=== PATIENT | male | born 2000 ===

== ENCOUNTER 2023-07-13 06:57 | Emergency (ER) | payer OTHER, SELFPAY ==
--- NOTE | ~2023-07-13 | XR_ITS ---
EXAMINATION: XR CHEST CLINICAL INFORMATION: Chest pain. Rule out pneumonia COMPARISON: None available. TECHNIQUE: 2 views of the chest were obtained. FINDINGS: No significant abnormality is noted involving the heart, lungs, mediastinum, bony thorax or soft tissues. XR/XR chest 2V IMPRESSION: Unremarkable chest examination.
[2023-07-13 07:00] VITALS: BP 133/68; PULSE 86; RESP 19; TEMP 36.9; O2SAT 99; BMI 23.5
--- NOTE | 2023-07-13 07:54 | ED_ITS ---
HPI - Fever General Chief Complaint: Fever Stated Complaint: Fever Diarrhea Time Seen by Provider: 07/13/23 07:15 Source: patient and family ( Mother, Velvet) Mode of arrival: ambulatory Limitations: no limitations History of Present Illness HPI Narrative: 22 older male who presents emergency department for evaluation of 3 days of fever as high as 104.9, sore throat, chills, fatigue, joint pain. The patient was at a surfing cap in [facility] for approximately 15 days. He did go to a [facility] [place] area to see a water fall in [facility]. The patient does not recall any insect bites. He states that he has had fever and chills which have been intermittent over the past 3 days. He denied rhinorrhea. Complains of a mild to moderate sore throat. He denied cough, chest pain, shortness of breath, dyspnea on exertion he denied nausea or vomiting. He states that he had 1 episode of diarrhea yesterday but not look at the diarrhea is not certain if there is any blood in the diarrhea. He denied abdominal pain. He denied dysuria urgency but has been urinating frequently but he has increase the amount of fluid he has been drinking secondary to his fever. He states he has been having fatigue with loss of appetite. Patient states he has received 2 COVID vaccines. He did not take any Antimalarial drugs while he was in [facility]. Related Data Allergies Allergy/AdvReac Type Severity Reaction Status Date / Time No Known Allergies Allergy Verified 07/13/23 06:59 Review of Systems 2 Review of Systems: Yes all other systems are reviewed and are negative [facility] Past Medical History Attestation statement: The following information was validated with the patient. [facility] Narrative: Past medical history: Asthma as a child. Surgical history: Right wrist surgery. Social history: Denies tobacco use. He does drink alcohol. He states that he occasionally eats edible marijuana products but has not used any of Marijuana edible in over 5 months. Social History Social History Alcohol intake: current Alcohol intake frequency: a few times a month Smoked in Last 30 Days: No Use of substances other than those prescribed or required for medical reasons: No Advance Directives: No Physical Exam 2 Vital Signs: Vital Signs: Last Vital Signs Temp 99.7 F 07/13/23 10:00 Pulse 70 07/13/23 10:00 Resp 18 07/13/23 10:00 BP 120/64 07/13/23 10:00 Pulse Ox 97 07/13/23 10:00 O2 Del Method Room Air 07/13/23 10:00 BMI result Body Mass Index 23.5 vital signs are normal Exam General: Awake, alert in no distress Head: Normocephalic, atraumatic EENT: PERRL, Lids normal, sclera normal, conjunctiva normal, nose normal , ears normal, throat without erythema or exudates Neck: Supple, no adenopathy, trachea midline and nontender Lung: breath sounds symmetric, no wheezing, rales or rhonchi Chest: symmetric movement, nontender Heart: regular rate and rhythm, normal S1, S2 no murmurs or rubs Abdomen: soft, non-tender, nondistended, normal bowel sounds Back: no vertebral tenderness, no CVAT Extremities: no deformities, moves all extremities symmetrically, ecchymosis to left knee, no tenderness Skin: no rashes, no lesion, normal color and warmth Neuro: Awake, alert, oriented, normal speech, cranial nerves intact, moves all extremities symmetrically Psych: Pleasant, cooperative Medications Administered Discontinued Medications Generic Name Dose Route Start Last Admin Trade Name Freq PRN Reason Stop Dose Admin Sodium Chloride 1,000 mls @ 999 mls/hr 07/13/23 07:31 07/13/23 09:04 Ns IV 07/13/23 08:31 Infused .Q1H1M STA Infusion Medical Decision Making Medical Decision Making [facility] Narrative: 22-year-old male who presents emergency department for evaluation of 3 days of intermittent fever as high as 104.9, sore throat, fatigue, chills, loss of appetite x3 days, with 1 episode of diarrhea yesterday who was in [facility] and in each for 15 days at a surfing [place] in [facility]. Patient did not take antimalarial drugs. [facility] rates [facility] as a no to low risk area for malaria. Patient's vital signs were normal. Patient's physical examination was unremarkable. Given his recent travel to a foreign country I did order following evaluation: CBC, CMP, ESR, CRP , lactic acid, CK, lipaseblood cultures x2, PT/INR, PTT, tick-borne illness panel, respiratory pathogen panel, malaria babesia smear, urinalysis chest x-ray -two view Differential Diagnosis Differential Diagnoses: The differential diagnosis associated with the presentation includes 0809: differential diagnosis includes but is not limited to malaria, tick-borne illness, COVID-19, influenza, respiratory viral illness, strep throat, yellow fever, typhoid, pneumonia, urinary tract infection Lab Data 07/13/23 07:51 07/13/23 07:51 Labs: Lab Results 07/13/23 07/13/23 07/13/23 Range/Units 07:51 08:13 09:35 WBC 4.9 (4.8-10.8) X10*3/uL RBC 4.80 (4.60-5.80) X10*6/uL Hgb 13.9 L (14.0-18.0) g/dl Hct 41.6 L (42.0-52.0) % MCV 86.7 (80.0-98.0) fL MCH 29.0 (27.0-33.0) pg MCHC 33.4 (31.0-36.0) g/dl RDW 12.6 (11.0-16.0) % Plt Count 137 L (160-400) X10*3/uL MPV 10.6 (9.4-12.4) fL Immature Gran % (Auto) 0.0 (0.0-0.4) % Neut % (Auto) 64.1 (45-73) % Lymph % (Auto) 20.9 (20-40) % Gaines % (Auto) 14.8 H (2-11) % Eos % (Auto) 0.0 (0-4) % Baso % (Auto) 0.2 (0-2) % Lymph # (Auto) 1.0 L (1.2-4.9) X10*3/uL Gaines # (Auto) 0.7 (0.1-1.2) X10*3/uL Eos # (Auto) 0.0 (0.0-0.4) X10*3/uL Baso # (Auto) 0.0 (0.0-0.2) X10*3/uL Abs Immat Gran (auto) 0.00 (0.00-0.03) X10*3/uL Absolute Neuts (auto) 3.2 (2.0-8.3) x10*3/uL Absolute Nucleated RBC 0.000 (0.0-0.012) X10*3/uL Nucleated RBC % (auto) 0.0 (0.0-0.2) /100WBC Smear Path Review SEE NOTE ESR 12 (0-15) MM/HR PT 16.9 H (11.1-13.3) SEC INR 1.4 H (0.9-1.1) APTT 29.4 (26.0-36.4) SEC Sodium 138 (135-145) mmol/L Potassium 3.7 (3.3-5.1) mmol/L Chloride 104 (96-108) mmol/L Carbon Dioxide 27 (22-29) mmol/L Anion Gap 11 L (12-20) BUN 9 (9-16) mg/dL Creatinine 1.05 (0.5-1.4) mg/dL Estim Creat Clear Calc 101.4 Estimated GFR > 60 Random Glucose 91 (60-115) mg/dL Lactic Acid 0.7 (0.5-2.0) mmol/L Calcium 9.5 (8.4-10.2) mg/dL Total Bilirubin 0.5 (0.0-1.0) mg/dL AST 22 (5-37) U/L ALT 29 (0-40) U/L Alkaline Phosphatase 84 (39-117) U/L Total Creatine Kinase 127 (38-174) U/L C-Reactive Protein 8.82 H (< or = 0.50) mg/dL Total Protein 7.5 (6.5-8.0) g/dL Albumin 4.5 (3.5-5.0) g/dL Lipase 18 (8-78) U/L Urine Color Yellow Urine Appearance Clear Urine pH 6.5 (5.0-9.0) Ur Specific [place] 1.020 (1.005-1.025) Urine Protein Trace (Neg-Trace) mg/dL Urine Glucose (UA) Negative (Negative) mg/dL Urine Ketones 15 (Negative) mg/dL Urine Blood Negative (Negative) Urine Nitrite Negative (Negative) Ur Leukocyte Esterase Negative (Negative) Respiratory Panel [place] See Note Adenovirus (Rapid PCR) Not Detected (Not Detect.) B.pert (TEM-PCR) Not Detected (Not Detect.) B.parapertussis DNA PCR Not Detected (Not Detect.) C. pneumoniae DNA (PCR) Not Detected (Not Detect.) Coronavirus OC43 (PCR) Not Detected (Not Detect.) Coronavirus HKU1 (PCR) Not Detected (Not Detect.) Coronavirus 229E (PCR) Not Detected (Not Detect.) Coronavirus NL63 (PCR) Not Detected (Not Detect.) Human Metapneumovir PCR Not Detected (Not Detect.) Influenza A (RT-PCR) Not Detected (Not Detect.) Influenza B (RT-PCR) Not Detected (Not Detect.) M. pneumoniae (PCR) Not Detected (Not Detect.) Parainfluenza 1 (PCR) Not Detected (Not Detect.) Parainfluenza 2 (PCR) Not Detected (Not Detect.) Parainfluenza 3 (PCR) Not Detected (Not Detect.) Parainfluenza 4 (PCR) Not Detected (Not Detect.) RSV (PCR) Not Detected (Not Detect.) Entero/Rhino (PCR) Not Detected (Not Detect.) SARS-CoV-2 RNA (RT-PCR) Not Detected (Not Detect.) S. pyogenes GrpA CAIO Negative (Negative) Discharge Plan Discharge Clinical Impression: Viral illness Patient Disposition: Home, Self-Care Instructions: Viral Syndrome (ED) Additional Instructions: The pathologist looked did 2 blood smear and did not see any malaria will parasites in your red blood cells at this time which is reassuring. If you develops symptoms that come back every 3 days (periodic fever) then malaria still needs to be considered and you should return to the emergency department for repeat testing. Your COVID-19, RSV and influenza viral tests were negative Your respiratory viral panel was also negative. You were not anemic, your electrolytes were normal in your liver tests were normal Your tick-borne illness panel is pending. You can check this on the patient portal but we should call you if any of these tests come back positive. Increase your fluid intake Take ibuprofen 200 mg pills, 2 pills every 6 hours as needed for pain or fever. Take Tylenol (acetaminophen) 500 mg pills, 2 pills every 6 hours as needed for pain or fever. Follow-up with your doctor in 2 days. Please return to the emergency department if your symptoms get worse or if you develop any symptoms that are concerning to you.
[2023-07-13 07:59] LABS: MANUAL DIFF FLAG NO
[2023-07-13] MEDS: 0.9 % Sodium Chloride 1,000 ML 999 ML IV (08:01)
[2023-07-13 08:03] LABS: Basophils Percent Auto 0.2 % (0-2); Hematocrit 41.6 % (42.0-52.0); Hemoglobin 13.9 g/dl (14.0-18.0); Lymphocytes Percent Auto 20.9 % (20-40); Mean Corpuscular HGB Conc 33.4 g/dl (31.0-36.0); Mean Corpuscular Volume 86.7 fL (80.0-98.0); Mean Platelet Volume 10.6 fL (9.4-12.4); Monocytes Absolute Auto 0.7 X10*3/uL (0.1-1.2); Monocytes Percent Auto 14.8 % (2-11); Neutrophils Absolute Auto 3.2 x10*3/uL (2.0-8.3); Neutrophils Percent Auto 64.1 % (45-73); Platelet Count 137 X10*3/uL (160-400); Red Cell Distribution Width 12.6 % (11.0-16.0); White Blood Count 4.9 X10*3/uL (4.8-10.8)
[2023-07-13 08:11] LABS: Lactic Acid 0.7 mmol/L (0.5-2.0)
[2023-07-13 08:15] LABS: Alanine Aminotransferase 29 U/L (0-40); Albumin Level 4.5 g/dL (3.5-5.0); Alkaline Phosphatase 84 U/L (39-117); Anion Gap 11 (12-20); Aspartate Amino Transferase 22 U/L (5-37); Bilirubin Total 0.5 mg/dL (0.0-1.0); Blood Urea Nitrogen 9 mg/dL (9-16); C Reactive Protein 8.82 mg/dL (< or = 0.50); Calcium 9.5 mg/dL (8.4-10.2); Carbon Dioxide 27 mmol/L (22-29); Chloride 104 mmol/L (96-108); Creatinine Clr Calc Pharmacy 101.4; Estimated Glomerular Filt Rate > 60; Glucose Random 91 mg/dL (60-115); Lipase 18 U/L (8-78); Potassium 3.7 mmol/L (3.3-5.1); Sodium 138 mmol/L (135-145); Total Protein 7.5 g/dL (6.5-8.0)
[2023-07-13 08:34] LABS: IDNOW Serial# 08D9AD1C; Strep A Nucleic Acid Negative (Negative)
[2023-07-13 08:35] LABS: INTERNATIONAL NORM RATIO 1.4 (0.9-1.1); Prothrombin Time 16.9 SEC (11.1-13.3)
[2023-07-13 08:38] LABS: Partial Thromboplastin Time 29.4 SEC (26.0-36.4)
[2023-07-13 08:40] LABS: Erythrocyte Sedimentation Rate 12 MM/HR (0-15)
--- NOTE | 2023-07-13 09:04 | PC.NURSE ---
Pt currently A&Ox4, appears in NAD. VSS. RR even and unlabored bilaterally on RA. Medicated per DEC. All labs sent. Family at bedside. Pending results. WCTA
[2023-07-13 09:34] VITALS: BP 116/63; PULSE 81; RESP 16; TEMP 38.2; O2SAT 97
[2023-07-13 09:43] LABS: Appearance Urine Clear; Color Urine Yellow; Glucose Urine UA Negative (Negative); Leukocyte Esterase Urine Negative (Negative); Nitrite Urine Negative (Negative); PH 6.5 (5.0-9.0); Urine Blood Negative (Negative); Urine Ketones 15 mg/dL (Negative); Urine Protein Trace mg/dL (Neg-Trace)
[2023-07-13 10:00] VITALS: BP 120/64; PULSE 70; RESP 18; TEMP 37.6; O2SAT 97
--- NOTE | 2023-07-13 11:51 | PC.NURSE ---
Pt continues resting on stretcher, appears in NAD. Denies all complaints at this time. VSS. Currently afebrile. Awaiting lab results, ED provider recommendation. wcta
[2023-07-13 11:59] LABS: Adenovirus PCR Not Detected (Not Detect.); Bordetella parapertussis PCR Not Detected (Not Detect.); Bordetella pertussis PCR Not Detected (Not Detect.); Chlamydia pneumoniae PCR Not Detected (Not Detect.); Coronavirus 229E PCR Not Detected (Not Detect.); Coronavirus HKU1 PCR Not Detected (Not Detect.); Coronavirus NL63 PCR Not Detected (Not Detect.); Coronavirus OC43 PCR Not Detected (Not Detect.); Human metapneumovirus PCR Not Detected (Not Detect.); Influenza A PCR Not Detected (Not Detect.); Influenza B PCR Not Detected (Not Detect.); Mycoplasma pneumoniae PCR Not Detected (Not Detect.); Parainfluenza 1 PCR Not Detected (Not Detect.); Parainfluenza 2 PCR Not Detected (Not Detect.); Parainfluenza 3 PCR Not Detected (Not Detect.); Parainfluenza 4 PCR Not Detected (Not Detect.); RSV PCR Not Detected (Not Detect.); Rhino/Enterovirus PCR Not Detected (Not Detect.); SARS-CoV-2 PCR Not Detected (Not Detect.)
[2023-07-15 17:32] LABS: A. Phagocytphilium DNA,RT-PCR NOT DETECTED (NOT DETECTED); Babesia Microti DNA, RT-PCR NOT DETECTED (NOT DETECTED); Borrelia Miyamotoi,DNA RT-PCR NOT DETECTED (NOT DETECTED); E.Chaffeensis DNA RT-PCR NOT DETECTED (NOT DETECTED); Lyme(Borrelia ssp)DNA RT-PCR NOT DETECTED (NOT DETECTED)
== END 2023-07-13 12:57 | disposition home or self-care (01) ==
PROVIDERS: Emergency Provider Emergency Medicine Emergency Medical Services
DX: B34.9 Viral infection, unspecified (principal); R50.9 Fever, unspecified; J02.9 Acute pharyngitis, unspecified; R35.0 Frequency of micturition; Z20.822 Contact with and (suspected) exposure to COVID-19; Z20.828 Contact with and (suspected) exposure to other viral communicable diseases; Z79.899 Other long term (current) drug therapy
CPT/HCPCS: 36415; 71046; 80053; 81003; 82550; 83605; 83690; 85025; 85610; 85652; 85730; 86140; 87040; 87207; 87468; 87469; 87478; 87484; 87633; 87651; 87798; 96360; 99284